=== PATIENT | female | born 1990 | race Caucasian/White ===

== ENCOUNTER 2019-04-01 09:21 | Emergency (ER) | payer OTHER ==
[~2019-04-01] VITALS: Ht 162.6 cm; Wt 56.7 kg
[2019-04-01] MEDS ORDERED: SYNTHROID112 MCG (09:34)
== END 2019-04-01 11:00 | disposition home or self-care (01) ==
LOC: ER 09:21
DX: S61.421A Laceration with foreign body of right hand, initial encounter (principal); W25.XXXA Contact with sharp glass, initial encounter; Y93.89 Activity, other specified; Y92.89 Other specified places as the place of occurrence of the external cause; Y99.8 Other external cause status

== ENCOUNTER 2020-04-27 19:41 | Inpatient (IN) | payer OTHER ==
[~2020-04-27] VITALS: Ht 162.6 cm; Wt 53.5 kg
[~2020-04-27 19:41] MED LIST: SYNTHROID112 MCG
--- NOTE | 2020-04-27 20:15 | NUR ---
SE RECIBE PTE ALERRTA Y ORIENTADA X3,REFIERE TENER DIARREAS,DOLOR EN EL PECHO,FIEBRE ,DOLOR ABDOMINAL.
--- NOTE | 2020-04-27 22:53 | NUR ---
EVALUA PTE. SE ORIENTA A PTE SOBRE TX MEDICO. PTE REFIERE COMPRENDER. SE REALIZAN MUESTRAS DE LABORATORIO BAJO MEDIDAS ASEPTICAS. SE ADMINISTRAN MEDICAMENTOS GUDELIA ORDEN MEDICA. SE NOTIFICAN ABG Y VENTURY AL 40% A . SE NOTIFICA CT A . PENDIENTE REPETIR COVID MOLECULAR.
--- NOTE | 2020-04-28 02:20 | NUR ---
PACIENTE ALERTA Y ORIENTADA X3. SE ORIENTA SOBRE PROCEDIMIENTO A REALIZAR Y TX A RECIBIR Y REFIRIO ENTENDER. SE REALIZO MUESTRAS DE LABORATORIO BAJO MEDIDAS ASEPTICAS. IV FLUID PATENTE Y FRANCISCA DE EDEMA Y ERITEMA. SE ADMINISTRO MEDICAMENTO ORDENADO POR . PACIENTE RECIBIENDO OXIGENO POR VENTURY MASK ORDENADO POR . SATURANDO OXIGENO MANUAL A 100%. LE REALIZARON PLACA ORDENADA POR . SE MANTIENE BAJO OBSERVACION POR CAMBIOS SIGNIFICATIVOS EN PATRICK CON BARANDAS ELEVADAS. PACIENTE EN UNIDAD DE AISLAMIENTO. [address] RESPIR[address]IA OFRECE TX ORDENADO POR .
--- NOTE | 2020-04-28 07:00 | NUR ---
PACIENTE FEMINA ALERTA ORIENTADA DEVIDAMENTE IDENTIFICADA. AREA DE VENOPUNCION PATENTE FRANCISCA DE EDEMA Y ERITEMA. CONSULTADA CON DR: AIDA MORRISSEY PARA SER EVALUADA. SE JOSEPH PRIVACIDAD SEGURIDAD Y SE ASISTE EN TODO MOMENTO. PACIENTE ESTABLE AL MOMENTO.
[2020-04-29] MEDS ORDERED: SYNTHROID137 MCG (08:11)
== END 2020-04-30 12:02 | disposition home or self-care (01) | DRG 866 ==
LOC: ER 19:41 → MEDJ 04-28 08:44 → SEC-K 04-28 08:44 → MEDI 04-28 08:44 → MEDJ 04-28 10:28
PROVIDERS: ADMIT Internal Medicine; ATTEND Internal Medicine
PROC: 8E0ZXY6 Isolation (ICD-10-PCS; principal; 2020-04-28)
PROC: BW24ZZZ Computerized Tomography (CT Scan) of Chest and Abdomen (ICD-10-PCS; 2020-04-28)
PROC: BW41ZZZ Ultrasonography of Abdomen and Pelvis (ICD-10-PCS; 2020-04-29)
DX: A90 Dengue fever [classical dengue] (principal); R65.10 Systemic inflammatory response syndrome (SIRS) of non-infectious origin without acute organ dysfunction; E86.0 Dehydration; Z20.828 Contact with and (suspected) exposure to other viral communicable diseases

== ENCOUNTER 2020-05-05 13:13 | Inpatient (IN) | payer OTHER ==
[~2020-05-05] VITALS: Ht 160 cm; Wt 52.2 kg
[~2020-05-05 13:13] MED LIST changes: +SYNTHROID137 MCG
--- NOTE | 2020-05-05 13:23 | NUR ---
SE RECIBE PTE ALERTA Y ORIENTADA X3,REFIERE FAMILIAR QUE ESTUVO HOSPITALIZADA POR DENGUE RECIENTEMENTE ,REFIERE QUE LA PTE TIENE DIARREAS X4 HOY ,FIEBRE ,DEBILIDAD.
[2020-05-11] MEDS ORDERED: VANCOMYCIN HCL125 MG PO (10:11)
== END 2020-05-11 11:48 | disposition home or self-care (01) | DRG 372 ==
LOC: ER 13:13 → MEDI 20:28 → SURG 20:28 → MEDI 05-06 13:21 → MEDJ 05-09 13:18
PROVIDERS: ADMIT Internal Medicine; ATTEND Internal Medicine
PROC: 8E0ZXY6 Isolation (ICD-10-PCS; principal; 2020-05-05)
PROC: BW21YZZ Computerized Tomography (CT Scan) of Abdomen and Pelvis using Other Contrast (ICD-10-PCS; 2020-05-09)
DX: A04.72 Enterocolitis due to Clostridium difficile, not specified as recurrent (principal); N39.0 Urinary tract infection, site not specified; E03.9 Hypothyroidism, unspecified; E86.0 Dehydration; D69.49 Other primary thrombocytopenia; E87.6 Hypokalemia; Z20.828 Contact with and (suspected) exposure to other viral communicable diseases